=== PATIENT | female | born 1980 | race Caucasian/White ===

== ENCOUNTER 2016-09-06 06:35 | Emergency (ER) | payer BC ==
[2016-09-06 07:15] VITALS: RESP 16; TEMP 97.9
--- NOTE | 2016-09-06 07:54 | DI ---
CT HEAD SCAN WITHOUT IV CONTRAST, 09/06/2016 7:15 AM : Clinical History: Foggy vision after head injury. Previous Exam: None at this facility. Scans are obtained from the foramen magnum to the vertex without IV contrast. The 4th, 3rd, and lateral ventricles are of normal size, shape, position, and contour. There are no abnormal areas of increased or decreased density. There is no intracranial hemorrhage. Bone window evaluation is normal. 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 There is leftward deviation of the bony nasal septum. READING: Left-sided maxillary sinus disease otherwise unremarkable.
--- NOTE | 2016-09-06 08:20 | PDOC ---
Head Injury HPI - General Chief Complaint: Head Problem / Injury Stated Complaint: FALL LAST NIGHT HITTING HEAD ON CEMENT Date Seen by Provider: 09/06/16 Time Seen by Provider: 06:45 Source: POSITIVE: Patient Exam Limitations: POSITIVE: No limitations Nurse's Notes Reviewed & Considered: Yes - History of Present Illness Initial Comments: The patient is a 33 year old female. She states that last night, approximately 11 hours [employer], she was sitting on her porch swing. The chain on the swing broke and she fell backward and struck the back of her head on some concrete. She states she fell 2-3 feet. She had no loss of consciousness. No nausea or vomiting. No seizures. No sensory or motor symptoms. She states that she slept through the night well but this morning states that she "feels off"and complains of some "blurriness of vision". Have you received a tetanus shot in the past 10 years?: Unknown Body Location Affected: REPORTS: Head Timing: REPORTS: Abrupt Duration: <24 hours (11 hours [employer]) Severity: Mild Context: REPORTS: Fall, Direct Blow Location at Time of Onset: REPORTS: Home Quality: REPORTS: "Pain" (Local scalp pain over the occipital parietal area) Associated Symptoms: REPORTS: Recalls Injury, Recalls Coming to ER, Blow to Head. DENIES: Dazed, Seizure, Trouble Breathing, Memory Impairment, Lost Consciousness, Other Duration of Altered Mental Status (in minutes):: 0 Location of Injuries / Pain: REPORTS: Head Any Prior Injuries Related to Current Complaint?: No - Patient Home Medications Home Medications: Home Medications Citalopram Hydrobromide [Celexa] 1 tab ORAL QD #90 tab 05/29/16 - Patient Allergies Allergies/Adverse Reactions: Allergies Allergy/AdvReac Type Severity Reaction Status Date / Time No Known Drug Allergies Allergy NOT Verified 09/06/16 06:38 APPLICABLE Past Medical History - heen HEENT History: Denies History Cardiovascular History: Denies History Respiratory History: Denies History Gastrointestinal History: Irritable Bowel Syndrome, Gallbladder Disease Additional Gastrointestinal History: GB removed Genitourinary History: Denies History Endocrine History: Denies History Musculoskeletal History: Denies History Prosthesis or Implant: No Neurological History: Denies History Blood Disorders: Denies History Psychiatric History: Depression History of Sexually Transmitted Diseases: No Female Reproductive History: Hysterectomy Additional Female Reproductive History: Hx of partial hysterectomy. Cancer History: Denies History In Past Year Been Physically Harmed or Verbally Threatened: No History of MDRO: No History of Other Communicable Diseases: No Tobacco Use: Current Every Day Smoker Alcohol Use: Occasionally Substance Use Type: None Previous Surgical History: Yes Type / Date of Surgery: OBI/ right ovary removed Anesthesia Reactions: No Malignant Hyperthermia: No Significant Family History: No pertinent family hx Past Medical History Reviewed: Reviewed - No Changes ROS - Limitations ROS Limitations: No Limitations Constitution: REPORTS: Denies Symptoms Cardiovascular: REPORTS: Denies Cardiac Symptoms Respiratory: REPORTS: Denies Resp Symptoms Neurological: REPORTS: Denies Neuro Symptoms, Other ("Feels off with blurriness of vision") Gastrointestinal: REPORTS: Denies GI Symptoms Endocrine: REPORTS: Denies Symptoms Musculoskeletal: REPORTS: Denies MS Symptoms Genitourinary: REPORTS: Denies Symptoms Eyes: REPORTS: Denies Symptoms ENT: REPORTS: Denies Symptoms Skin: REPORTS: Denies Skin Symptoms Lympathic: REPORTS: Denies Lympathic Symptoms Immunologic: POSITIVE: Denies Symptoms Psychiatric: POSITIVE: Denies Psych Symptoms Head Injury Physical Exam - General Appearance General Appearance: POSITIVE: Alert, Cooperative, No Acute Distress. NEGATIVE: No Evidence of Trauma (Small contusion occipital parietal area just left of midline) - HEENT Head / Face: POSITIVE: No Facial Swelling. NEGATIVE: Atraumatic (Small contusion occipital parietal area just left of midline), Normal Inspection Eyes: POSITIVE: Inspection Normal, PERRL, EOM's Intact, Eyelids Uninjured, Conjunctivae Uninjured, No Nystagmus, No Globe Trauma, Sclera Normal, Normal Corneal Inspection, Other (Visual acuity 20/20 left and 20/25 right) Ears: POSITIVE: Ears Normal Inspection, TM Normal Inspection, Auricle Normal, External Canal Normal Nose: POSITIVE: Inspection Normal, No Apparent Trauma, Nares Normal, No CSF Leak Oropharynx: POSITIVE: External Inspection Nml, Pharynx Inspect. Nml, Airway Intact, Voice Normal, Moist Mucous Membranes, No Oral Injury, Lips Normal, Gums Normal, No Drooling, No Thrush, Normal Gag Reflex Dental: POSITIVE: No Dental Injury - Pupil Size Pupil Size: 4 mm: Bilateral (PERRLA) - Neuro / Psych Neuro / Psych: POSITIVE: Alert, Oriented x 3, Cooperative, Interactive, Mood Appropiate, Affect Appropriate Cranial Nerves: POSITIVE: Normal As Tested, No Evidence of Acute CVA Cerebellar: POSITIVE: Normal As Tested Sensorimotor: POSITIVE: No Motor Deficits, No Sensory Deficits, Reflexes Normal - Respiratory / CVS Respiratory / CVS: POSITIVE: Chest Non Tender, No Ecchymosis, Breath Sounds Normal, No Respiratory Distress, Heart Sounds Normal, Regular Rate/Rhythm Peripheral Pulses: Radial (R): 2+, Radial (L): 2+ - Abdomen Abdomen: Soft: (All Quadrants), Normal Bowel Sounds: (All Quadrants), Denies Tenderness: (All Quadrants), No Splenomegaly: (All Quadrants), No Hepatomegaly: (All Quadrants), No Guarding: (All Quadrants), No Rebound: (All Quadrants), No Palpable Pulse: (All Quadrants), No Palpabale Mass: (All Quadrants), No Distention: (All Quadrants), No Rigidity: (All Quadrants) - Neck Neck: POSITIVE: Normal Inspection, Non-Tender, Painless ROM, Thyroid Normal, Nexus Criteria Negative. NEGATIVE: Muscle Spasm, Decreased ROM, Lymphadenopathy , Thyromegaly, Pain w/ Axial Compression, Subcutaneous Emphysema, Midline Tenderness, Distracting Injury, Altered Mental Status, Recent ETOH, Focal Neuro Defit, See Diagram, Other - Back Back: POSITIVE: Normal Inspection, No CVA Tenderness, Non Tender, Painless ROM, No Vertebral Tenderness - Skin Skin: POSITIVE: Intact, Normal Palpation - Extremities Extremity Assessment: Non-Tender: (ALL), Normal ROM: (ALL), No Edema: (ALL), Normal Inspection: (ALL), No Swelling: (ALL) Joint Exam: POSITIVE: Joints Normal, Normal ROM, Normal Gait, Normal Weight Bearing Images - Head Head: 1 - Scalp contusion Head Injury Progress - Results Reviewed by me Xrays/CTs/US Reviewed by me: Yes Discussed with Radiologist: Yes Radiology Findings: CT scan head without contrast normal - Patient's Progress Pain Medication Addressed: POSITIVE: Yes (Recommended Advil or Tylenol) School/Work Release Addressed: POSITIVE: Yes (May return to work) Re-examine Time: 08:10 Status: POSITIVE: Unchanged, Re-Examined - Consult Counseled: POSITIVE: Patient, RE: Radiology Results, RE: DX, RE: Need for F/U Head Injury Impression - Clinical Impression Clinical Impression: POSITIVE: Concussion w/o LOC, Contusion - Continued Care RX Given: No Disposition: POSITIVE: Home Condition: POSITIVE: Unchanged Patient Care Time - Estimated PCT Patient Care Time (In Minutes): 30 Vital Signs - Recent Vital Signs Vital Signs: Vital Signs (Last 8 hours) Temp Pulse Resp BP Pulse Ox 09/06/16 06:35 97.9 F 75 16 140/89 94 - VS Reviewed Vital Signs Reviewed: Yes Discharge Clinical Impression: Concussion with no loss of consciousness Discharge Disposition: Discharged to Home Condition: Stable Patient Instructions Given at Discharge: Concussion (ED) Additional Instructions: Take it easy today. Your CAT scan is normal. You may have had a mild concussion without loss of consciousness. Clear liquid diet for 12 hours. Advil or Tylenol for discomfort. Return here anytime if condition worsens in any way. Follow Up With: ANJU BLOOD FNP [Primary Care Provider] - (Instructions as above. Return here anytime if condition worsens.)
== END 2016-09-06 08:28 | disposition home or self-care (01) ==
LOC: ER 06:35
DX: S06.0X0A Concussion without loss of consciousness, initial encounter (principal); W17.89XA Other fall from one level to another, initial encounter
CPT/HCPCS: 70450; 99282